=== PATIENT | female | born 1950 | race Caucasian/White ===

== ENCOUNTER 2021-03-08 09:29 | Outpatient (CLI) | payer MEDICARE, SELFPAY ==
--- NOTE | ~2021-03-08 | US_ITS ---
EXAMINATION: US FNA w image guidance DATE: 03/08/2021 10:19 INDICATION: Nontoxic single thyroid nodule. TECHNIQUE: The procedure and its benefits and risks were discussed with the patient. Risks specifically discusse d included bleeding. The patient verbalized understanding of the risks and agreed to proceed. The nec k was prepped and draped in the usual sterile manner. 1% lidocaine was used for local anesthesia. 5 passes were made with a 25G needle into the lesion under ultrasound guidance. There were no immedia te complications. The patient understood to call the ordering physician for results after a week and a half and verbalized that understanding. FINDINGS: Grayscale ultrasound images demonstrate needles advanced into a 15 mm nodule in right thyroid isthmus for biopsy. IMPRESSION: 1. Ultrasound-guided fine needle aspiration of a thyroid nodule. Reviewed, dictated and finalized at location A.
== END 2021-03-08 09:30 | disposition home or self-care (01) ==
LOC: ANHIMG 09:34
PROVIDERS: PCP Nurse Practitioner; Visit Provider Otolaryngology
DX: E04.1 Nontoxic single thyroid nodule (principal)
CPT/HCPCS: 10005; 88173; 88305